=== PATIENT | female | born 1960 ===

== ENCOUNTER → 2020-02-17 | Day surgery (SDC) | payer OTHER ==
[~2020-02-17] MED LIST: ACETAMINOPHEN325 M1 PO; ALEVE220 M1 PO; DEXAMETHASONE SOD PHOS INJ 4 MG/ML VIAL ONE; ETOMIDATE 2 MG/ML 10 ML INJ IV ONE; FENTANYL CITRATE/PF 100MCG/2 ML INJ ONE; IOPAMIDOL 300MG/ML 50ML INFUS..BTL IV ONE; LEVOFLOXACIN 500MG/D5W 100ML 100 ML IV ONE; OMEPRAZOLE40 MG PO; ONDANSETRON HCL INJ 2MG/ML 2ML 2 MG/ML VIAL ONE; SEVOFLURANE INHAL SOLN 250 ML PEN BTL ONE
--- NOTE | 2020-02-17 08:26 | Diagnostic Imaging Report ---
Exam: KUB - 2 views Indication: Preoperative Comparison: None Findings: Right internal nephroureteral stent in place. No radiographically apparent right urinary calculi. 3.1 cm left upper pole staghorn calculus. No additional radiographically apparent left-sided calculi. Surgical skin gaby across the lower abdomen. Nonobstructive bowel gas pattern. No free air. Partially visualized lung bases are clear. No acute osseous injury. Impression: 3.1 cm left upper pole staghorn calculus. Right internal nephroureteral stent in place. Signed by: Dmitriy Sky MD on 02/17/2020 8:23 AM
[2020-02-17 08:36] VITALS: BP 129/77
--- NOTE | 2020-02-17 12:50 | Operative Report ---
DATE OF PROCEDURE: 02/17/2020 SURGEON: Juan Manuel Raphael MD PREOPERATIVE DIAGNOSES: 1. Encrusted right ureteral stent. 2. Right bladder calculus. 3. Right renal calculus. POSTOPERATIVE DIAGNOSES: 1. Encrusted right ureteral stent. 2. Right bladder calculus. 3. Right renal calculus. PROCEDURES: 1. Cystolitholapaxy simple (entirely separate procedure to break bladder calculi off the stent). 2. Right extracorporeal shock wave lithotripsy (entirely separate procedure for the patient's right kidney stones). 3. Supervision of fluoroscopy. ANESTHESIA: General. ESTIMATED BLOOD LOSS: Minimal. COMPLICATIONS: None. INDICATIONS: Ms. Marilyn Gonzalez is a 59-year-old morbidly obese patient, who presented originally in July of 2019, per her report to [facility]. There were no records available despite request. The patient failed to return for stent removal, now presents with increasing urinary tract infections and pain. She and I had a long discussion about alternatives, risks, and benefits of doing nothing, attempted stent removal, cystolitholapaxy, and shock wave lithotripsy. She voiced understanding of the options, alternatives, risks, and benefits and elected to proceed. PROCEDURE IN DETAIL: After informed consent was obtained, the patient was taken to the operative suite, placed supine on the operative table, underwent general anesthesia by the Anesthesia Service. All pressure points were carefully prepped and padded. The patient in the office had stated her weight was 250 pounds, her real weight is 350 pounds, she is 5 feet even. Despite multiple attempts, she could not be fitted into any stirrups at the hospital. We eventually tried to frog-leg her on the table. With the aid of 2 staff, we were able to gain access to the bladder. However, due to the morbid obesity and no space in between the legs even with frog legging, could not manipulate the scope much at all. With a flexible grasper, I was able to grasp the stent, break-off multiple calcifications on the stent. Several of these are passed off the table as specimens. Attempt was made to retract the stent, this failed completely and appears to be a K-wired stent. Shock wave lithotripsy head was brought into focus on the proximal coils. I did manage to get one coil uncoiled with 3000 shocks, maximum power setting of 6. To the extreme difficulty, I just grasped the stent and the fact stent was completely occluded. I left the stent outside the urethra to aid the next urologist and attempt removal of this. I attempted to contact the patient's daughter, she was not available. She did not wait as instructed. I spoke to the patient in the PACU, explained the stent was not able to be removed and that with her weight, she likely will need to seek care in a tertiary care center. Supervision of fluoroscopy: I was present for the entire procedure and supervised fluoroscopy. There was no radiologist present. MD SARAH Shah/MODL /[id number]
== END | disposition home or self-care (01) ==
LOC: OR 05:36
PROVIDERS: ATTEND Urology
DX: N21.0 Calculus in bladder (principal); N20.0 Calculus of kidney; Z46.6 Encounter for fitting and adjustment of urinary device; D41.00 Neoplasm of uncertain behavior of unspecified kidney; E66.01 Morbid (severe) obesity due to excess calories; R06.09 Other forms of dyspnea; N39.0 Urinary tract infection, site not specified; I10 Essential (primary) hypertension; Z88.0 Allergy status to penicillin; Z88.2 Allergy status to sulfonamides; Z01.810 Encounter for preprocedural cardiovascular examination; Z01.812 Encounter for preprocedural laboratory examination; Z11.59 Encounter for screening for other viral diseases; Z68.44 Body mass index [BMI] 60.0-69.9, adult; Z84.1 Family history of disorders of kidney and ureter
CPT/HCPCS: 50590; 74018; 87635; 88300; 93005; C1758; C1769; J1956; J3010